=== PATIENT | female | born 1975 | race Caucasian/White ===

== ENCOUNTER 2024-04-11 09:52 | Day surgery (SDC) | payer OTHER ==
[~2024-04-11] VITALS: Ht 167.6 cm; Wt 58.5 kg
[~2024-04-11 09:52] MED LIST: ATOR1TAB21 PO; HYDR-3490 PO; LOSA100T46 PO; LR 1,000 ML IV SCH; MAGN400T2 PO; METF500T13 PO; METO1TAB7 PO; MIDAZOLAM INJ 2MG/2ML VIAL As Ordered ONE; OMEP40CA4 PO; SEMA7TAB2 PO; fentaNYL 100 MCG/2 ML INJECTION As Ordered ONE
[2024-04-11] MEDS: PHENYLEPHRINE 2.5% OPHTH SOL 2ML OS SCH (10:44)
[2024-04-11] MEDS: ATROPINE SULFATE 1% OPHTH SOLN 2ML BTL OS SCH (10:44)
[2024-04-11] MEDS: FLURBIPROFEN 0.03% OPHTH SOLN 2.5 ML OS SCH (10:45)
[2024-04-11] MEDS: TETRACAINE 0.5% OPHTH SOLN 4ML OS SCH (10:45)
[2024-04-11] MEDS: TRYPAN BLUE 0.06 % 2.25 ML OPHTH SYR (VISIONBLUE) As Ordered ONE (12:00)
[2024-04-11] MEDS: LIDOCAINE 1% SDV 5ML VIAL As Ordered ONE (12:00)
[2024-04-11] MEDS: CEFUROXIME 1MG/0.1ML INTRACAMERAL INJ As Ordered ONE (12:12)
[2024-04-11 12:22] VITALS: BP 117/62; TEMP 97.9; O2SAT 100
== END 2024-04-11 14:10 | disposition home or self-care (01) ==
LOC: M SDC 09:52
PROVIDERS: ATTEND Ophthalmology
DX: H25.22 Age-related cataract, morgagnian type, left eye (principal); E11.9 Type 2 diabetes mellitus without complications; I10 Essential (primary) hypertension; E78.00 Pure hypercholesterolemia, unspecified; K21.9 Gastro-esophageal reflux disease without esophagitis; Z87.891 Personal history of nicotine dependence; Z79.899 Other long term (current) drug therapy; Z79.84 Long term (current) use of oral hypoglycemic drugs
CPT/HCPCS: 66982; J0697; J2250; J3010

== ENCOUNTER → 2024-08-22 | Outpatient (REF) ==
[~2024-08-22] MED LIST changes: -LR 1,000 ML IV SCH; -MIDAZOLAM INJ 2MG/2ML VIAL As Ordered ONE; -fentaNYL 100 MCG/2 ML INJECTION As Ordered ONE
== END ==
LOC: M LAB 14:36
PROVIDERS: ATTEND Family Medicine
DX: Z02.1 Encounter for pre-employment examination (principal)